=== PATIENT | male | born 1965 | race Caucasian/White ===

== ENCOUNTER 2019-02-08 10:44 | Emergency (ER) | payer OTHER ==
[~2019-02-08] VITALS: Ht 177.8 cm; Wt 86.2 kg
[2019-02-08 10:48] VITALS: BP 135/84
== END 2019-02-08 11:12 | disposition home or self-care (01) ==
LOC: ED 10:44
DX: M54.5 Low back pain (principal); G89.29 Other chronic pain

== ENCOUNTER 2019-02-09 17:03 | Emergency (ER) | payer OTHER ==
[~2019-02-09] VITALS: Ht 177.8 cm; Wt 86.2 kg
[2019-02-09 17:21] VITALS: BP 136/85; Ht 177.8 cm; Wt 86.2 kg
== END 2019-02-09 17:56 | disposition home or self-care (01) ==
LOC: ED 17:03
DX: M54.5 Low back pain (principal); G89.29 Other chronic pain
CPT/HCPCS: J1885